=== PATIENT | female | born 1960 | race Caucasian/White ===

== ENCOUNTER 2017-07-15 17:11 | Outpatient (CLI) | payer MEDICARE ==
[2013-07-25 03:51] VITALS: BP 152/68
== END 2017-07-15 17:12 ==
LOC: LAB 17:11
PROVIDERS: ATTEND Physical Medicine & Rehabilitation
DX: Z79.899 Other long term (current) drug therapy (principal)
CPT/HCPCS: 80377; G0481

== ENCOUNTER 2017-09-14 15:56 | Outpatient (CLI) | payer MEDICARE ==
[2013-07-25 03:51] VITALS: BP 152/68
== END 2017-09-14 16:05 ==
LOC: RAD 15:56
PROVIDERS: ATTEND Physical Medicine & Rehabilitation
DX: M54.6 Pain in thoracic spine (principal)
CPT/HCPCS: 77080

== ENCOUNTER 2017-11-24 11:04 | Outpatient (CLI) | payer MEDICARE ==
[2013-07-25 03:51] VITALS: BP 152/68
[2017-11-24 11:52] LABS: eGFR (African) > 60; eGFR (Non-African) > 60
== END 2017-11-24 11:06 ==
LOC: LAB 11:04
PROVIDERS: ATTEND Physical Medicine & Rehabilitation
DX: M81.0 Age-related osteoporosis without current pathological fracture (principal)
CPT/HCPCS: 36415; 80048; 82306; 83970